=== PATIENT | male | born 2000 | race Caucasian/White ===

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

== ENCOUNTER 2024-01-10 13:20 | Emergency (ER) | payer OTHER ==
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
[2024-01-10 17:28] VITALS: BP 138/89; TEMP 97.8; O2SAT 100
== END 2024-01-10 17:24 | disposition left against medical advice (07) ==
LOC: ER 13:20
DX: Z53.21 Procedure and treatment not carried out due to patient leaving prior to being seen by health care provider (principal)
CPT/HCPCS: 99281